=== PATIENT | male | born 1995 | race Caucasian/White ===

== ENCOUNTER 2022-02-12 21:45 | Emergency (ER) | payer OTHER, SELFPAY ==
--- NOTE | ~2022-02-12 | CT_ITS ---
EXAMINATION: CT abdomen pelvis wo con DATE: 02/12/2022 22:47 INDICATION: Left flank pain today. History of kidney stones TECHNIQUE: Computed tomography (CT) of the abdomen and pelvis was performed without intravenous contr ast. Automated exposure control and iterative reconstruction technique were employed. Exam dose: 609 .93 mGy-cm total exam DLP. COMPARISON: None. FINDINGS: The lung bases are clear of infiltrate or consolidation. Normal heart size. No pericardial or pleural effusion. The liver, gallbladder, bile ducts, spleen, pancreas, pancreatic duct and adrenal glands are unremark able. Scattered bilateral nonobstructing kidney stones are noted measuring up to approximately 4.7 mm maxim al dimension on the right, 2 mm on the left. There is a left ureterovesical junction 3.5 x 4.3 mm calculus with moderate left hydroureteronephrosi s. Normal caliber of the abdominal aorta. No intraperitoneal or retroperitoneal or pelvic mass lesion or adenopathy or ascites. Normal appendix. No bowel obstruction or intraperitoneal free air. Included skeletal structures are unremarkable. IMPRESSION: Left ureterovesical junction 3.5 x 4.3 mm obstructing calculus with moderate left hydrou reteronephrosis Bilateral nephrolithiasis Reviewed, dictated and finalized at [facility]. Reviewed, dictated and finalized at [facility]. IMPRESSION: Left ureterovesical junction 3.5 x 4.3 mm obstructing calculus wit h moderate left hydroureteronephrosis Bilateral nephrolithiasis
--- NOTE | 2022-02-12 22:00 | ED.ABDPAIN ---
HPI - Abdominal Pain General Source: patient Mode of arrival: ambulatory History of Present Illness HPI narrative: 26-year-old male with history kidney stones status post lithotripsy /stent placement presents to the ER with 12 hour history of -- left flank pain radiating to his left groin/ testicle denied dysuria/hematuria MD elicited complaint: flank pain Pertinent past history: none Onset (ago): hour(s) ( started 12 hours ago) Pain Consistency: intermittent Location: L flank Severity: severe Pain scale (0-10): 8 Quality: aching Radiation: L flank and other ( radiates to left groin) Exacerbating factors: nothing Relieving factors: nothing Associated symptoms: nausea Related Data Allergies Allergy/AdvReac Type Severity Reaction Status Date / Time No Known Allergies Allergy Verified 02/12/22 22:03 Review of Systems Review of Systems: All systems reviewed & are unremarkable except as noted in HPI and below Constitutional: Constitutional: Reports as per HPI and Reports no additional constitutional complaints Eyes: Eyes: Reports as per HPI and Reports no additional eye complaints ENT: Reports system reviewed and no additional complaints, except as documented and Reports as per HPI Cardiovascular: Cardiovascular: Reports as per HPI and Reports no additional cardiovascular complaints Respiratory: Respiratory: Reports as per HPI and Reports no additional respiratory complaints Gastrointestinal: Gastrointestinal: Reports as per HPI, Reports no additional gastrointestinal complaints and Reports abdominal pain Genitourinary: Genitourinary: Reports no additional male genitourinary complaints and Reports as per HPI Musculoskeletal: Musculoskeletal: Reports no additional musculoskeletal complaints and Reports as per HPI Integumentary/Breasts: Skin/Breast: Reports system reviewed and no additional complaints, except as docu and Reports as per HPI Neurologic: Reports system reviewed and no additional complaints, except as documented and Reports as per HPI Psychiatric: Psychiatric: Reports no additional psychiatric complaints and Reports as per HPI Endocrine: Endocrine: Reports no additional endocrine complaints and Reports as per HPI Hematologic/Lymphatic: Hematologic/Lymphatic: Reports no additional hematologic/lymphatic complaints and Reports as per HPI Allergic/Immunologic: Allergic/Immunologic: Reports no additional allergic/immunologic complaints and Reports as per HPI Exam Const: General: ill appearing Orientation/consciousness: patient oriented x3 Limitations: no limitations HENMT: Head: normal to inspection Ears: external ears normal General nose exam: Normal external nose present Face and sinus: normal facial exam Mouth: Yes Normal oral and palatal mucosa present Throat: posterior oropharynx normal Eyes: Conjunctivae: conjunctivae normal Pupils: Equal, round and reactive pupils present EOM: EOMs intact bilaterally Neck: Neck: normal visual inspection Chest: Chest palpation & inspection: normal inspection of the chest Resp: Effort & Inspection: normal respiratory effort Auscultation: clear to auscultation bilaterally Cardio: Rate: regular rate Rhythm: regular rhythm GI: GI Palp: Yes Soft to palpation Other: no tenderness/ rigidity/rebound : General: Yes bladder normal to palpation Back/Spine/Pelvis: Back: no CVA tenderness Skin: General skin exam: normal color Rashes: no rashes Wounds: no wounds Neuro: General: patient oriented x3 Cranial nerves: Yes Nystagmus not present Speech: normal speech Gait exam (Neuro): Normal gait present Extrem: General: normal to inspection Psych: Mental Status: mental status grossly normal Affect: normal affect Attitude: cooperative Course Course Emergency Course: left flank pain improved with IV Toradol Vital Signs Vital signs: Vital Signs Temperature 37.2 C 02/12/22 22:26 Pulse Rate 101 H 02/12/22 22:26 Respiratory Rate 18 06/
[2022-02-12] MEDS: LACTATED RINGERS 1,000 ML 999 ML IV CONT (22:22)
[2022-02-12] MEDS: KETOROLAC 30 MG/ML VIAL (*BKC) IV PUSH (22:23)
[2022-02-12 22:26] VITALS: BP 144/100; PULSE 101; RESP 18; TEMP 37.2; O2SAT 100
[2022-02-12 22:27] LABS: Basophils Absolute Auto 0.05 K/mm3 (0.00-0.10); Basophils Percent Auto 0.4 % (0.0-1.0); Eosinophils Absolute Auto 0.23 K/mm3 (0.02-0.50); Hematocrit 43.9 % (40.0-54.0); Hemoglobin 14.9 g/dL (14.0-18.0); Immature Granulocyte Absolute 0.02 K/mm3 (0.00-0.00); Immature Granulocyte Percent A 0.2 % (0.0-0.0); Lymphocytes Absolute Auto 4.99 K/mm3 (1.10-4.50); Lymphocytes Percent Auto 42.4 % (18.0-42.0); Mean Corpuscular HGB Conc 33.9 g/dL (32.0-36.0); Mean Corpuscular Volume 88.5 fL (78.0-102.0); Mean Platelet Volume 9.9 fl (8.7-11.0); Monocytes Absolute Auto 1.16 K/mm3 (0.10-0.90); Monocytes Percent Auto 9.9 % (2.0-11.0); Neutrophils Absolute Auto 5.3 K/mm3 (1.7-7.2); Neutrophils Percent Auto 45.1 % (50.0-70.0); Platelet Count Result 256 K/mm3 (150-420); Red Blood Count 4.96 M/mm3 (4.70-6.10); Red Cell Distribution Width 12.3 % (11.6-14.4); White Blood Count 11.8 K/mm3 (4.8-10.8)
[2022-02-12 22:30] VITALS: O2SAT 100
[2022-02-12 22:31] VITALS: BP 128/114; O2SAT 99
[2022-02-12 22:43] LABS: Alanine Aminotransferase 32 U/L (16-63); Albumin Level 3.9 g/dL (3.4-5.0); Alkaline Phosphatase 152 U/L (46-116); Anion Gap 10 mmol/L (8-16); Aspartate Amino Transferase 21 U/L (15-37); Bilirubin,Total 0.6 mg/dL (0.00-1.00); Blood Urea Nitrogen 13 mg/dL (7-18); Calcium 9.1 mg/dL (8.5-10.1); Carbon Dioxide 24 mmol/L (21-32); Chloride 104 mmol/L (98-108); Estimated Glomerular Filt Rate > 60; Glucose 120 mg/dL (70-99); Lipase 36 U/L (73-393); Osmolality Calculated 287 mOsm/kg (285-295); Potassium 3.6 mmol/L (3.5-5.1); Sodium 138 mmol/L (136-145); Total Protein 7.3 g/dL (6.4-8.2); Uric Acid 5.9 mg/dL (3.5-7.2)
[2022-02-12 22:45] LABS: Add Urine Microscopic? YES; Appearance Urine Slightly Cloudy (Clear); Bilirubin Urine 1+ (Negative); Blood Urine 3+ (Negative); Color Urine Yellow (Yellow); Glucose Urine UA Negative (Negative); Ketones Urine Trace (Negative); Leukocyte Esterase Ur Trace (Negative); Nitrate Urine Negative (Negative); Protein Urine Trace (Negative); pH Urine 6.5 (5.0-8.0)
[2022-02-12 22:47] LABS: Lactic Acid Reflex 1.5 mmol/L (0.4-2.0)
[2022-02-12 22:50] VITALS: O2SAT 97
[2022-02-12 22:51] LABS: Bacteria Urine 1+ /hpf; Mucus Urine Few /lpf; RBC Urine >75 /hpf (0-2)
[2022-02-12 23:00] VITALS: O2SAT 97
[2022-02-12 23:15] VITALS: O2SAT 97
[2022-02-12] MEDS: TAMSULOSIN HCL 0.4 MG CAPSULE PO (23:16)
[2022-02-12] MEDS: HYDROcodone/acetaminophen (*CRX) 5-325 MG TABLET 1 TAB PO (23:23)
== END 2022-02-12 23:31 | disposition home or self-care (01) ==
PROVIDERS: Emergency Provider Internal Medicine Critical Care Medicine; PCP Physician Assistant
DX: N20.2 Calculus of kidney with calculus of ureter (principal)
CPT/HCPCS: 36415; 74176; 80053; 81001; 83605; 83690; 84550; 85025; 96361; 96374; 99284; A9270; J1885; J7120

== ENCOUNTER 2024-02-10 15:09 | Outpatient (RCR) | payer OTHER, SELFPAY ==
--- NOTE | 2024-02-10 15:54 | OPREHPOC ---
Outpatient Therapy Plan of Care This is a Multidisciplinary Plan of Care that may contain components documented by all disciplines (PT, OT, and ST.) PT Problem 1 PT Problem #1 Knowledge Deficit PT Goal 1 Goal 1. independent and compliant with HEP Target Visit 3 PT Problem 2 PT Problem #2 Pain PT Goal 1 Goal 1. no pain in his bilateral knees in the last week . Target Visit 6 PT Problem 3 PT Problem #3 Impaired Strength PT Goal 1 Goal 1. patient to display 5/5 bilateral hip abduction. Target Visit 6 PT Problem 4 PT Problem #4 Impaired Functional Mobil PT Goal 1 Goal 1. patient to stand for 2 hours or more without increased bilateral knee pain 2. LEFS to display 0% functional deficits 3. 30 degrees or less bilateral hamstrings tightness per the 90/90 test Target Visit 6
--- NOTE | 2024-02-10 15:55 | PTOPEVAL1 ---
Assessment and note entered by [facility], PT Evaluation Information Assessment Status Evaluation Diagnosis bilateral knee pain Onset 02/07/24 Subjective Information patient reports he has been having knee problems in both his knees. he reports it started out on the L knee. he reports he did try a brace on the L knee, and then his R knee started hurting. he reports it feels like inflammation in the back of the knee is what his pain comes from. he reports he has the most symptoms with standing. he reports he began having symptoms months ago. he reports he works and also has some side hustles. 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 he reports he has not had any xrays or MRI of the knees. he reports he has never had any injury to the knees. he reports the pain began around the time he started his side hustle. he reports it involves going up and down a ramp frequently. he reports overall his symptoms have plateaued. Reported Pain Level Pain Score 0: Self Report Assessment PT Clinical Summary mr. naidu is a pleasant 28 yo man who presents to skilled PT services for evaluation and treatment of bilateral knee pain. today, he presents with little pain in the bilateral knees, but weakness of the hip abductors, tightness in the bilateral hamstrings, and tenderness to palpation with a palpable knot in the back of his bilateral knees. he would benefit from continued skilled PT to improve his objective/functional deficits and progress towards a return to his prior level functional activity performance and quality of life without pain/symptoms. Plan of Care Interventions Electrical Stimulation,Gait Training,Hot Pack/Cold Pack,Manual Therapy,Neuro Re-education,Patient/ Caregiver Educati,Therapeutic Activities, Therapeutic Exercise PT Services Indicated Yes Treatment Frequency and 2x weekly for 6 visits Duration These treatments will address the objective and functional deficits as defined above. The patient will be advanced safely and appropriately in order for the patient to progress towards his/her prior level of function. Additional exercises will be introduced and as well as a comprehensive home exercise program upon discharge, if needed, ?to ensure carryover of functional gains achieved in the clinic. This treatment plan has been reviewed and agreement upon by the patient.
--- NOTE | 2024-02-25 08:25 | PCPTNOTE ---
Patient cancelled session today. Notes something came up at work, and he will not be able to make it in.
--- NOTE | 2024-03-08 16:10 | OPREHPOC ---
Outpatient Therapy Plan of Care This is a Multidisciplinary Plan of Care that may contain components documented by all disciplines (PT, OT, and ST.) PT Problem 1 PT Problem #1 Knowledge Deficit PT Goal 1 Goal 1. independent and compliant with HEP Target Visit 3 Progress Met PT Problem 2 PT Problem #2 Pain PT Goal 1 Goal 1. no pain in his bilateral knees in the last week . Target Visit 10 Progress Not Met PT Problem 3 PT Problem #3 Impaired Strength PT Goal 1 Goal 1. patient to display 5/5 bilateral hip abduction. Target Visit 10 Progress Not Met PT Problem 4 PT Problem #4 Impaired Functional Mobil PT Goal 1 Goal 1. patient to stand for 2 hours or more without increased bilateral knee pain. met 2. LEFS to display 0% functional deficits. not met 3. 30 degrees or less bilateral hamstrings tightness per the 90/90 test. Target Visit 10 Progress Partially Met
--- NOTE | 2024-03-08 16:10 | PTOPREEVAL ---
Assessment and note entered by [facility]T [facility], PT Evaluation Information Assessment Status Re-evaluation Diagnosis bilateral knee pain ICD-10 Condition Codes (PT) M25.561,Pain in left knee M25.562 Onset 02/07/24 Subjective Information patient reports he has been feeling better since starting therapy. he reports he has been taking it a bit easier too. he reports at times he still gets weak in the knees and is weak in the legs. he reports he will feel wobbly when this happens. he reports he has had no pain standing lately. Reported Pain Level Pain Score 0: Self Report Assessment PT Clinical Summary mr. naidu presents to skilled PT for his 6th skilled PT visit. he presents today with decreased pain, and improvement per the LEFS. he also reports improved ability to stand and work. however, he still has had pain in the past week, has weakness of the hips, tightness of the hamstrings, deficits per the LEFS limiting his achievement of all PT objective/functional goals. continued skilled PT is indicated to work on achievement of remaining unmet goals to improve his quality of life and functional activity performance. Plan of Care Interventions Electrical Stimulation,Gait Training,Hot Pack/Cold Pack,Manual Therapy,Neuro Re-education,Patient/ Caregiver Educati,Therapeutic Activities, Therapeutic Exercise PT Services Indicated Yes Treatment Frequency and continue skilled PT 2x weekly for 4 more visits Duration These treatments will address the objective and functional deficits as defined above. The patient will be advanced safely and appropriately in order for the patient to progress towards his/her prior level of function. Additional exercises will be introduced and as well as a comprehensive home exercise program upon discharge, if needed, ?to ensure carryover of functional gains achieved in the clinic. This treatment plan has been reviewed and agreement upon by the patient.
--- NOTE | 2024-03-20 09:13 | PCPTNOTE ---
Patient cancelled session today. Reports he is going to the doctor to get antibiotics and will see if he can make it .
--- NOTE | 2024-03-30 14:24 | OPREHPOC ---
Outpatient Therapy Plan of Care This is a Multidisciplinary Plan of Care that may contain components documented by all disciplines (PT, OT, and ST.) PT Problem 1 PT Problem #1 Knowledge Deficit PT Goal 1 Goal 1. independent and compliant with HEP Target Visit 3 Progress Met PT Problem 2 PT Problem #2 Pain PT Goal 1 Goal 1. no pain in his bilateral knees in the last week . Target Visit 10 Progress Met PT Problem 3 PT Problem #3 Impaired Strength PT Goal 1 Goal 1. patient to display 5/5 bilateral hip abduction. Target Visit 10 Progress Met PT Problem 4 PT Problem #4 Impaired Functional Mobil PT Goal 1 Goal 1. patient to stand for 2 hours or more without increased bilateral knee pain. met 2. LEFS to display 0% functional deficits. not met 3. 30 degrees or less bilateral hamstrings tightness per the 90/90 test. met Target Visit 10 Progress Partially Met
--- NOTE | 2024-03-30 14:24 | PTOPDC ---
Assessment and note entered by JT File, PT Evaluation Information Assessment Status Discharge Diagnosis bilateral knee pain ICD-10 Condition Codes (PT) M25.561,Pain in left knee M25.562 Onset 02/07/24 Subjective Information patient reports he feels Good today. he reports no pain today, and no pain for over a week. 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 Reported Pain Level Pain Score 0: Self Report Assessment PT Clinical Summary mr. nicholson presents to skilled PT for his 10th skilled PT visit today. he no longer has pain in the knees, and has met all goals for skilled PT. he will be DC'd from skilled PT services today, and continue with HEP independent at home. Plan of Care PT Services Indicated Yes
== END 2024-03-30 14:55 | disposition home or self-care (01) ==
LOC: CHSPT 15:09
PROVIDERS: PCP Family Medicine; Visit Provider Registered Nurse
DX: M25.561 Pain in right knee (principal); M25.562 Pain in left knee
CPT/HCPCS: 97110; 97161; 97530

== ENCOUNTER 2024-02-10 18:07 | Outpatient (CLI) | payer OTHER, SELFPAY ==
--- NOTE | ~2024-02-10 | XR_ITS ---
Left Knee Technique: AP, lateral, and oblique views were obtained. Clinical History: Pain Findings: No fracture or dislocation is seen. Osseous alignment is anatomic. Joint spaces are preserv ed without degenerative or erosive change. Soft tissues are unremarkable. No joint effusion is seen. Impression: Unremarkable left knee radiographs. Reviewed, dictated and finalized at location . Impression: Unremarkable left knee radiographs.
--- NOTE | ~2024-02-10 | XR_ITS ---
Right Knee Technique: AP, lateral, and oblique views were obtained. Clinical History: Pain Findings: No fracture or dislocation is seen. Osseous alignment is anatomic. Joint spaces are preserv ed without degenerative or erosive change. Soft tissues are unremarkable. No joint effusion is seen. Impression: Unremarkable right knee radiographs. Reviewed, dictated and finalized at location . Impression: Unremarkable right knee radiographs.
== END 2024-02-10 18:08 | disposition home or self-care (01) ==
LOC: CHSIMG 18:09
PROVIDERS: PCP Registered Nurse; Visit Provider Registered Nurse
DX: M25.561 Pain in right knee (principal); M25.562 Pain in left knee
CPT/HCPCS: 73562